=== PATIENT | male | born 1985 | race Caucasian/White ===

== ENCOUNTER 2017-03-09 15:42 | Emergency (ER) | payer OTHER ==
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
[2017-03-09 15:53] VITALS: BP 126/91; PULSE 63; TEMP 97.8; BMI 24.4
[2017-03-09] MEDS ORDERED: IBUPROFEN 600 MG TABLET (FP) PO ONE (16:25)
[2017-03-09] MEDS ORDERED: IBUPROFEN 400 MG TABLET (FP) PO ONE ×2 (16:28→16:30)
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
== END 2017-03-09 16:49 | disposition home or self-care (01) ==
LOC: JERFT 15:42
DX: M62.830 Muscle spasm of back (principal); V49.49XA Driver injured in collision with other motor vehicles in traffic accident, initial encounter; Y92.488 Other paved roadways as the place of occurrence of the external cause; Y93.89 Activity, other specified; Y99.8 Other external cause status
CPT/HCPCS: 99281-25